=== PATIENT | female | born 1985 | race Caucasian/White ===

== ENCOUNTER 2020-07-16 10:37 | Outpatient (REF) | payer OTHER, SELFPAY ==
[2020-07-16 11:48] LABS: COVID-19 Test Negative (Negative); IDNOW Serial# 55D5AD1C
== END 2020-07-16 10:38 | disposition home or self-care (01) ==
LOC: HO.LAB 10:37
PROVIDERS: Visit Provider Internal Medicine
DX: Z20.828 Contact with and (suspected) exposure to other viral communicable diseases (principal)
CPT/HCPCS: 87635; C9803

== ENCOUNTER 2020-07-25 11:54 | Outpatient (REF) | payer OTHER, SELFPAY ==
[2020-07-25 12:40] LABS: COVID-19 Test Negative (Negative); IDNOW Serial# 55D5AD1C
== END 2020-07-25 11:55 | disposition home or self-care (01) ==
LOC: HO.EMPCOV 11:54
PROVIDERS: Visit Provider Internal Medicine
DX: Z20.828 Contact with and (suspected) exposure to other viral communicable diseases (principal)
CPT/HCPCS: 87635; C9803

== ENCOUNTER 2020-09-04 09:57 | Outpatient (REF) | payer SELFPAY ==
[2020-09-04 10:50] LABS: Cholesterol 152 mg/dL
== END 2020-09-04 09:58 | disposition home or self-care (01) ==
LOC: HO.LNP 09:57
PROVIDERS: Visit Provider Pathology Anatomic Pathology & Clinical Pathology
DX: Z13.89 Encounter for screening for other disorder (principal)
CPT/HCPCS: 82465

== ENCOUNTER 2020-11-19 15:44 | Outpatient (REF) | payer OTHER, SELFPAY ==
[2020-11-19 16:02] LABS: COVID-19 Test Negative (Negative); IDNOW Serial# 55D5AD1C
== END 2020-11-19 15:45 | disposition home or self-care (01) ==
LOC: HO.EMPCOV 15:44
PROVIDERS: Visit Provider Internal Medicine
DX: Z20.822 Contact with and (suspected) exposure to COVID-19 (principal)
CPT/HCPCS: 36415; 87635; C9803

== ENCOUNTER 2020-12-26 12:30 | Outpatient (REF) | payer OTHER, SELFPAY ==
[2020-12-26 13:36] LABS: COVID-19 Test Negative (Negative)
== END 2020-12-26 12:31 | disposition home or self-care (01) ==
LOC: HO.LAB 12:30
PROVIDERS: Visit Provider Internal Medicine
DX: Z20.822 Contact with and (suspected) exposure to COVID-19 (principal)
CPT/HCPCS: 36415; 87635; C9803

== ENCOUNTER → 2021-08-13 09:14 | Outpatient (BNVA) | payer OTHER, SELFPAY | PROVIDERS: PCP Nurse Practitioner; Referring Provider Nurse Practitioner; Visit Provider Nurse Practitioner | DX: K21.9 Gastro-esophageal reflux disease without esophagitis (principal) | CPT/HCPCS: 99202 ==

== ENCOUNTER → 2021-09-19 11:26 | Outpatient (BNVA) | payer OTHER, SELFPAY | PROVIDERS: PCP Nurse Practitioner; Referring Provider Nurse Practitioner; Visit Provider Nurse Practitioner ==

== ENCOUNTER 2021-10-31 10:33 | Outpatient (REF) | payer OTHER, SELFPAY ==
--- NOTE | ~2021-10-31 | FL_ITS ---
EXAMINATION: FL BARIUM SWALLOW CLINICAL INFORMATION: Gastroesophageal reflux disease without esophagitis. COMPARISON: None TECHNIQUE: Barium swallow examination is performed using fluoroscopic evaluation in addition to multiple fluoroscopic spot views. The patient is imaged both upright and prone and using both thick and thin sulfate along with effervescent granules. Fluoroscopy time: 2.5 minutes Dose: 96.582 mGy DAP: 7.966 Gycm2 Images: 52 FINDINGS: The esophagus is normal in course, caliber, and distensibility. Primary and secondary peristalsis are normal. The mucosa is smooth and featureless. The gastroesophageal junction is normally located. There is no obstruction of flow of contrast, nor is there obstruction to the passage of a 13 mm barium tablet. There is spontaneous gastroesophageal reflux to the midesophagus without provocative maneuvers with slightly delayed clearing. FL/FL barium swallow IMPRESSION: Spontaneous gastroesophageal reflux to the midesophagus.
== END 2021-10-31 10:34 | disposition home or self-care (01) ==
LOC: HO.XRAY 10:33
PROVIDERS: PCP Family Medicine; Visit Provider Nurse Practitioner
DX: K21.9 Gastro-esophageal reflux disease without esophagitis (principal)
CPT/HCPCS: 74220

== ENCOUNTER → 2021-12-02 14:36 | Outpatient (BNVA) | payer OTHER, SELFPAY | PROVIDERS: PCP Family Medicine; Visit Provider Nurse Practitioner | DX: Z13.89 Encounter for screening for other disorder (principal) ==

== ENCOUNTER 2022-10-09 11:51 | Outpatient (REF) | payer OTHER, SELFPAY ==
[2022-10-11 04:10] LABS: Lutenizing Hormone 7.4 mIU/mL
[2022-10-14 20:33] LABS: Anti-Mullerian Hormone-Female 1.97 ng/mL (0.18-5.68)
[2022-10-16 18:14] LABS: Progesterone 0.2 ng/mL
[2022-10-23 22:43] LABS: Estrogen 78.3 pg/mL
== END 2022-10-09 11:52 | disposition home or self-care (01) ==
LOC: HO.LAB 11:51
PROVIDERS: PCP Nurse Practitioner; Visit Provider Nurse Practitioner
DX: Z31.9 Encounter for procreative management, unspecified (principal)
CPT/HCPCS: 36415; 82397; 82672; 83001; 83002; 84144; 84443

== ENCOUNTER → 2022-11-14 11:53 | Outpatient (BNVA) | payer OTHER, SELFPAY | PROVIDERS: PCP Nurse Practitioner; Visit Provider Nurse Practitioner | DX: Z13.89 Encounter for screening for other disorder (principal) ==

== ENCOUNTER 2023-02-13 11:18 | Outpatient (REF) | payer OTHER, SELFPAY ==
[2023-02-13 12:16] LABS: Basophils Percent Auto 0.4 % (0-2); Eosinophils Absolute Auto 0.1 X10*3/uL (0.0-0.4); Eosinophils Percent Auto 2.7 % (0-4); Hematocrit 40.1 % (37.0-47.0); Hemoglobin 13.3 g/dl (12.0-16.0); Imm Gran Abs Auto 0.01 X10*3/uL (0.00-0.03); Imm Gran Pct Auto 0.2 % (0.0-0.4); Lymphocytes Absolute Auto 1.7 X10*3/uL (1.2-4.9); Lymphocytes Percent Auto 38.1 % (20-40); MANUAL DIFF FLAG NO; Mean Corpuscular HGB Conc 33.2 g/dl (31.0-35.0); Mean Corpuscular Hemoglobin 28.1 pg (27.0-33.0); Mean Corpuscular Volume 84.6 fL (80.0-98.0); Mean Platelet Volume 11.3 fL (9.4-12.3); Monocytes Absolute Auto 0.6 X10*3/uL (0.1-1.2); Monocytes Percent Auto 13.1 % (2-11); Neutrophils Absolute Auto 2.1 x10*3/uL (2.0-8.3); Neutrophils Percent Auto 45.5 % (45-73); Platelet Count 235 X10*3/uL (160-400); Red Blood Count 4.74 X10*6/uL (4.20-5.50); Red Cell Distribution Width 12.3 % (11.0-16.0); White Blood Count 4.5 X10*3/uL (4.8-10.8)
[2023-02-13 13:56] LABS: Thyroid Stimulating Hormone 1.34 uIU/mL (0.32-4.0); Vitamin D 25-OH Total 29.8 ng/mL (>30)
[2023-02-13 14:12] LABS: CT PCR NOT DETECTED (Not Detect.); NG PCR NOT DETECTED (Not Detect.)
[2023-02-13 14:18] LABS: Syphilis Screen Nonreactive (Nonreactive)
[2023-02-13 17:37] LABS: Estimated Average Glucose 85 mg/dL; Hemoglobin A1c % 4.6 %
[2023-02-15 04:34] LABS: Lutenizing Hormone 6.6 mIU/mL; Prolactin 13.9 ng/mL
[2023-02-16 10:01] LABS: HBsAGNum1 0.41 S/CO (0.00-0.99); HIV AB/AG Nonreactive (Nonreactive); HIV Num 1 0.07 S/CO (0.00-0.99); Hepatitis B Surface Antigen Negative (Negative); ~HepC Num1 0.17 S/CO (0.00-0.79); ~Hepatitis C Antibody Nonreactive (Nonreactive)
[2023-02-17 13:20] LABS: Rubella IgG Antibody 1.62 Index
[2023-02-17 13:23] LABS: Cytomegalovirus Ab IgG >10.00 U/mL; Cytomegalovirus Ab IgM <30.00 AU/mL
[2023-02-28 22:49] LABS: Estradiol Free 0.55 pg/mL; Estradiol, Ultrasensitive 31 pg/mL
== END 2023-02-13 11:19 | disposition home or self-care (01) ==
LOC: HO.LAB 11:18
PROVIDERS: Obstetrics & Gynecology Reproductive Endocrinology; PCP Nurse Practitioner; Visit Provider Pediatrics
DX: Z31.41 Encounter for fertility testing (principal); Z20.2 Contact with and (suspected) exposure to infections with a predominantly sexual mode of transmission
CPT/HCPCS: 0353U; 82306; 82670; 82681; 83001; 83002; 83036; 84146; 84443; 85025; 86644; 86645; 86762; 86780; 86803; 86850; 86900; 86901; 87340; 87389

== ENCOUNTER 2023-10-06 14:38 | Emergency (ER) | payer OTHER, SELFPAY ==
--- NOTE | ~2023-10-06 | CT_ITS ---
EXAMINATION: CTA head and neck CLINICAL INFORMATION: Left eye vision changes. COMPARISON: None available. TECHNIQUE: Test bolus sequences followed by intravenous administration of 70 mL of Omnipaque 350 contrast. Helical imaging was performed in the axial plane from the skull vertex to the thoracic inlet. Delayed postcontrast imaging of the head was also performed. The data was processed at the staff cytotechnologist workstation for generation of MIP sequences. Angled MIPs and volume rendered reformatted images were also generated at an offline 3D workstation. Stenoses are assessed in accordance with NASCET criteria unless otherwise indicated. This CT examination was performed using dose optimization techniques as appropriate, variously including the following: *Automated exposure control *Adjustment of mA and/or kV according to patient size (this includes techniques or standardized protocols for targeted exams where dose is matched to indication/reason for exam; i.e. extremities or head) *Use of iterative reconstruction technique DLP: 2201 mGy-cm FINDINGS: BRAIN: No acute intracranial hemorrhage or infarct. The pereyra-white matter differentiation is preserved. No midline shift or hydrocephalus. No acute extra-axial fluid collections. The osseous structures are unremarkable. No orbital pathology. The paranasal sinuses and mastoid air cells are clear. CTA NECK: Common origin of the innominate and left common carotid artery, normal variant. The innominate and bilateral subclavian arteries are patent. The origins and cervical segments of the common carotid arteries as well as the common carotid artery bifurcations are patent bilaterally. The cervical segments of the internal carotid arteries are patent bilaterally. The origins and cervical segments of the vertebral arteries are patent bilaterally. No hemodynamically significant stenosis, dissection, or aneurysm. The visualized branches of the external carotid arteries are unremarkable. CTA HEAD: Anterior circulation: The petrous, cavernous, supraclinoid segments of the internal carotid arteries are patent bilaterally. The major branches of the anterior and middle cerebral arteries as well as the anterior communicating artery complex are patent. No large vessel occlusion, saccular aneurysm, or dissection. Posterior circulation: The intracranial vertebral arteries are patent. The basilar artery is normal in caliber and course. The posterior cerebral and superior cerebellar arteries arise normally from the basilar summit. No aneurysm. On delayed imaging, the venous structures demonstrate normal contrast opacification. No filling defect. No abnormal intraparenchymal enhancement. Soft tissues: No suspicious neck mass or cervical adenopathy. Lungs: Clear. Bones: No acute osseous abnormality. No lytic or blastic osseous lesions. CT/CT angio head neck IMPRESSION: CT head demonstrates no acute intracranial hemorrhage or edematous territorial infarction. CTA head demonstrates no large vessel occlusion, saccular aneurysm, or dissection. CTA neck demonstrates no hemodynamically significant stenosis, dissection, or aneurysm.
[2023-10-06 14:46] VITALS: BP 116/65; PULSE 82; RESP 18; TEMP 36.6; O2SAT 100; BMI 38.0
--- NOTE | 2023-10-06 14:46 | ED.GENADULT ---
HPI - General Adult General Chief complaint: General Medical Stated complaint: temporarily loss of vision in L eye Time Seen by Provider: 10/06/23 16:16 Source: patient and RN notes reviewed Mode of arrival: ambulatory Limitations: no limitations History of Present Illness HPI narrative: This is a 38-year-old female, with a history of asthma and GERD, presenting to the emergency department for evaluation of vision changes which occurred prior to arrival. Patient states that while she was in a online meeting her left eye vision became blurry. She states that she saw shapes and colors but was unable to define objects. She states that this lasted for approximately 15 seconds and resolved on its own. She reports some mild achiness to her eye however denies eye pain, current vision changes or vision loss. She denies wearing contacts, she wears glasses. Denies history of similar symptoms. Denies any current headache, dizziness, weakness, chest pain, shortness of breath, abdominal pain, nausea, vomiting or diarrhea. Denies any head trauma or head strike. She has not on blood thinners. She has not currently . She states that she called her doctor who told her to come to the emergency room to have a CT scan. Reports that she has been in her usual state of health over the last several days MD complaint: Left eye vision changes Onset (ago): day(s) Location: eyes Radiation: non-radiation Relieving factors: none Exacerbating factors: none Associated symptoms: denies other symptoms Treatments prior to arrival: none Related Data Home Medications Medication Instructions Recorded Confirmed albuterol sulfate 90 mcg/actuation 2 puff PO Q4H PRN 08/13/21 aerosol inhaler cetirizine 10 mg tablet (Zyrtec) 10 mg PO DAILY PRN 08/13/21 prenat.vits,med,unb-udof-uqwam 1 tab PO DAILY 11/14/22 Previous Rx's Medication Instructions Recorded byekga-iosjhyid-kammqac 1 cap PO QID 30 days #120 caps 04/10/22 24,000-76,000-120,000 unit capsule,delayed rel (Creon) simethicone 180 mg capsule 180 mg PO QID 30 days #120 caps 04/10/22 Allergies Allergy/AdvReac Type Severity Reaction Status Date / Time No Known Allergies Allergy Verified 10/06/23 14:48 Review of Systems Review of Systems: Yes all other systems are reviewed and are negative Constitutional: Constitutional: Reports as per HPI ENT: Reports Normal hearing present Neurologic: Reports Normal hearing present [facility] Past Medical History Attestation statement: The following information was validated with the patient. Surgical History Hx of partial cystectomy H/O wisdom tooth extraction History of cholecystectomy Family History Family History Paternal Grandfather Pancreatic cancer Maternal Grandfather Heart attack Maternal Uncle HTN (hypertension) Social History Social History Alcohol intake: never Patient Tobacco Use Status: Never used Tobacco Advance Directives: No Advance Directives Information Provided: No Physical Exam ED Vital Signs: Vital Signs - 24 hr 10/06/23 14:46 Temperature 97.8 F Pulse Rate 82 Respiratory Rate 18 Blood Pressure 116/65 Pulse Oximetry 100 Oxygen Delivery Method Room Air BMI result Body Mass Index 38.0 Const General: cooperative, comfortable and no acute distress Orientation/consciousness: patient oriented x3 Limitations: no limitations HENMT Head: Yes normal to inspection, Yes normocephalic and Yes atraumatic Ears: hearing grossly normal bilaterally and TM's normal bilaterally General nose exam: Normal external nose present Face and sinus: Yes normal facial exam Mouth: Normal oral and palatal mucosa present, oropharynx normal and moist mucous membranes Throat: Yes posterior oropharynx normal Eyes Other: Left eye conjunctiva is not injected. Fluorescein stain was performed, no uptake elicited. No foreign body noted. Pupils equal and reactive. No nystagmus. Intra-ocular pressure 10mmHg bilaterally. General: appearance normal, both eyes and all related structures Periorbital: periorbital findings normal Eyelids: Yes eyelids normal Conjunctivae: conjunctivae normal Sclerae: sclerae normal Corneas: corneas normal Pupils: Equal, round and reactive pupils present EOM: EOMs intact bilaterally Direct Ophthalmoscopy: normal light reflex, No no photophobia, No no papilledema, fundi normal bilaterally and anterior chamber normal Neck Neck: Yes normal visual inspection, Yes full ROM and Yes no lymphadenopathy Lymphatic: no lymphadenopathy noted Chest Chest palpation & inspection: normal inspection of the chest Resp Effort & Inspection: normal respiratory effort and able to speak in complete sentences Auscultation: clear to auscultation bilaterally, no crackles, no rales, no rhonchi and no wheezes Cardio Rate: regular rate Rhythm: regular rhythm Heart sounds: S1 normal heart sound present and S2 normal heart sound present GI Inspection: Yes normal to inspection Skin General skin exam: no rashes or lesions noted Trauma: no lacerations or abrasions Wounds: no wounds Neuro General: patient oriented x3 and moves all extremities Cranial nerves: Yes CN's II-XII intact bilaterally, Yes Facial sensation intact/muscles of mastication intact, Yes Equal, round and reactive pupils present, Yes Normal accommodation reflex present, Yes Bilaterally intact EOM present, Yes Nystagmus not present, Yes Normal facial strength present, Yes Midline tongue present, Yes Symmetric palate elevation present, Yes Normal hearing present, Yes Ability to bilaterally rotate head present and Yes Ability to bilaterally elevate shoulders present Cognition (Neuro): normal cognition Gait exam (Neuro): Normal gait present Motor exam (neuro): 5/5 motor strength present throughout Coordination: szxdpc-ok-vnct test normal, qcve-xu-jwif test normal and tandem gait normal Romberg Test: Negative Extrem General: Yes normal to inspection Right upper extremity: normal to inspection Left upper extremity: normal to inspection Right lower extremity: normal to inspection Left lower extremity: normal to inspection Course Course Course Narrative: Patient complains of left eye loss of vision and blurriness that lasted less than a minute and was followed by floaters, she had no associated pain, no confusion no headache no nausea no dizziness no eye pain She does have an occasional history of migraine Reevaluation(s) Reevaluation #1: Visual acuity intact, labs reassuring. CTA is still pending. She has been asymptomatic since being in the emergency department. Will continue to closely monitor. Sign-out given to my colleague, Bladimir Underwood NP pending CTA. Time: 19:08 Reevaluation #2: brief Transient vision changes, asymptomatic while in the emergency department, unremarkable physical examination. CTA without acute etiology. Stable for discharge outpatient follow-up PCP worrisome signs and symptoms that would warrant re-evaluation emergency department. CT/CT angio head neck IMPRESSION: CT head demonstrates no acute intracranial hemorrhage or edematous territorial infarction. CTA head demonstrates no large vessel occlusion, saccular aneurysm, or dissection. CTA neck demonstrates no hemodynamically significant stenosis, dissection, or aneurysm. Time: 20:33 Medications Administered Discontinued Medications Generic Name Dose Route Start Last Admin Trade Name Scott PRN Reason Stop Dose Admin Fluorescein Sodium 1 strip 10/06/23 16:32 10/06/23 16:40 Fluorescein Sodium Strip EYE-LEFT 10/06/23 16:33 1 strip ONCE ONE Administration Iohexol 100 ml 10/06/23 18:55 10/06/23 18:55 Iohexol 350 Mg/Ml 100 Ml Infus..Btl IV 10/06/23 18:56 70 ml ONCE ONE Administration Tetracaine HCl 1 drop 10/06/23 16:32 10/06/23 16:40 Tetracaine Hcl 0.5% Oph Arlet 5 Ml Drops EYE-LEFT 10/06/23 16:33 1 drop ONCE ONE Administration Medical Decision Making Medical Decision Making [facility] Narrative: This is a 38-year-old female, with a history of asthma and GERD, presenting to the emergency department with episode of blurred vision that lasted approximately 15 seconds and resolved on its own. On arrival, vital signs within she is neurologically intact. Fluorescein stain was performed, no abnormality seen. Funduscopic exam was also performed, no abnormal findings. She has no headache, is neurologically intact. Will obtain CTA to rule out intracranial mass, hemorrhage, or abnormality. Patient has not had any blurred vision or visual changes since her arrival in the emergency department. Discussed case with my attending physician, Dr. Kaur, who is in agreement of obtaining CTA, basic labs. She is otherwise feeling well. Will continue to closely monitor. Differential Diagnosis Differential Diagnoses: The differential diagnosis associated with the presentation includes Closed angle glaucoma, iritis, macular degeneration, ICH, intracranial mass, CVA-unlikely Admission/Observation Consideration of admission/observation: Escalation of care including admission/observation considered Lab Data [facility] Lab Attestation statement: I reviewed the patient's lab results. No leukocytosis, stable H&H, chemistry nondiagnostic. Slight elevation in AST, otherwise unremarkable. Patient is not 10/06/23 17:28 10/06/23 17:28 Labs: Lab Results 10/06/23 Range/Units 17:28 WBC 6.4 (4.8-10.8) X10*3/uL RBC 4.80 (4.20-5.50) X10*6/uL Hgb 13.4 (12.0-16.0) g/dl Hct 40.8 (37.0-47.0) % MCV 85.0 (80.0-98.0) fL MCH 27.9 (27.0-33.0) pg MCHC 32.8 (31.0-35.0) g/dl RDW 11.9 (11.0-16.0) % Plt Count 255 (160-400) X10*3/uL MPV 9.9 (9.4-12.3) fL Immature Gran % (Auto) 0.2 (0.0-0.4) % Neut % (Auto) 47.1 (45-73) % Lymph % (Auto) 38.9 (20-40) % [place] % (Auto) 11.8 H (2-11) % Eos % (Auto) 1.7 (0-4) % Baso % (Auto) 0.3 (0-2) % Lymph # (Auto) 2.5 (1.2-4.9) X10*3/uL [place] # (Auto) 0.8 (0.1-1.2) X10*3/uL Eos # (Auto) 0.1 (0.0-0.4) X10*3/uL Baso # (Auto) 0.0 (0.0-0.2) X10*3/uL Abs Immat Gran (auto) 0.01 (0.00-0.03) X10*3/uL Absolute Neuts (auto) 3.0 (2.0-8.3) x10*3/uL Absolute Nucleated RBC 0.000 (0.0-0.012) X10*3/uL Nucleated RBC % (auto) 0.0 (0.0-0.2) /100WBC Sodium 141 (135-145) mmol/L Potassium 4.3 (3.3-5.1) mmol/L Chloride 104 (96-108) mmol/L Carbon Dioxide 31 H (22-29) mmol/L Anion Gap 10 L (12-20) BUN 14 (9-16) mg/dL Creatinine 0.65 (0.5-1.4) mg/dL Estim Creat Clear Calc 148.6 Estimated GFR > 60 Random Glucose 88 (60-115) mg/dL Calcium 9.0 (8.4-10.2) mg/dL Total Bilirubin 0.2 (0.0-1.0) mg/dL Direct Bilirubin < 0.2 (0.0-0.5) mg/dL AST 47 H (5-31) U/L ALT 24 (0-31) U/L Alkaline Phosphatase 46 (39-117) U/L Total Protein 7.2 (6.5-8.0) g/dL Albumin 3.7 (3.5-5.0) g/dL Beta HCG, Quant < 2 mIU/mL Radiology Impression Discussion of test interpretation with radiology: I have reviewed the radiologist's reading. Discharge Plan Discharge Clinical Impression: Change in vision Patient Disposition: Home, Self-Care Instructions: Blurred Vision (ED) Additional Instructions: You were seen in the emergency department after an episode of blurred vision. Your labs were reassuring. Your CTA did not indicate a reason for you to have this episode of blurred vision which is reassuring. Please follow-up with your eye physician, call tomorrow to make an appointment. If any new or worsening symptoms occur including fevers, chills headaches please return for re-evaluation Prescriptions: No Action albuterol sulfate 90 mcg/actuation HFA aerosol inhaler 2 puff PO Q4H PRN cetirizine [Zyrtec] 10 mg tablet 10 mg PO DAILY PRN Creon 24,000-76,000 -120,000 unit capsule,delayed release(DR/EC) 1 cap PO QID 30 Days Qty: 120 6RF Rx Instructions: administer with meals and/or snacks simethicone 180 mg capsule 180 mg PO QID 30 Days Qty: 120 6RF Rx Instructions: after meals prenat.vits,med,prh-rwjm-rwrfa Tablet 1 tab PO DAILY Referrals: Camille Arroyo, [employer] [Primary Care Provider] -
[2023-10-06] MEDS: Tetracaine HCl 0.5% Oph Sol 5 ML DROPS 1 DROP EYE-LEFT (16:40)
[2023-10-06] MEDS: Fluorescein Sodium STRIP 1 STRIP EYE-LEFT (16:40)
--- NOTE | 2023-10-06 17:12 | PC.NURSE ---
PT IN EXAM ROOM IN NO OUTWARD DISTRESS, PT REPORTS AND IS ABLE TO READ ON PHONE WITHOUT VISIUAL LIMITIATION, PROVIDER HAS MADE HER AWARE OF ED CARE PLAN AND PT IS IN AGREEMENT
[2023-10-06 17:32] LABS: MANUAL DIFF FLAG NO
[2023-10-06 17:33] LABS: Basophils Percent Auto 0.3 % (0-2); Eosinophils Absolute Auto 0.1 X10*3/uL (0.0-0.4); Eosinophils Percent Auto 1.7 % (0-4); Hematocrit 40.8 % (37.0-47.0); Hemoglobin 13.4 g/dl (12.0-16.0); Imm Gran Abs Auto 0.01 X10*3/uL (0.00-0.03); Imm Gran Pct Auto 0.2 % (0.0-0.4); Lymphocytes Absolute Auto 2.5 X10*3/uL (1.2-4.9); Lymphocytes Percent Auto 38.9 % (20-40); Mean Corpuscular HGB Conc 32.8 g/dl (31.0-35.0); Mean Corpuscular Hemoglobin 27.9 pg (27.0-33.0); Mean Platelet Volume 9.9 fL (9.4-12.3); Monocytes Absolute Auto 0.8 X10*3/uL (0.1-1.2); Monocytes Percent Auto 11.8 % (2-11); Neutrophils Percent Auto 47.1 % (45-73); Platelet Count 255 X10*3/uL (160-400); Red Cell Distribution Width 11.9 % (11.0-16.0); White Blood Count 6.4 X10*3/uL (4.8-10.8)
[2023-10-06 18:02] LABS: Alanine Aminotransferase 24 U/L (0-31); Albumin Level 3.7 g/dL (3.5-5.0); Alkaline Phosphatase 46 U/L (39-117); Anion Gap 10 (12-20); Aspartate Amino Transferase 47 U/L (5-31); Bilirubin Direct < 0.2 mg/dL (0.0-0.5); Bilirubin Total 0.2 mg/dL (0.0-1.0); Blood Urea Nitrogen 14 mg/dL (9-16); Carbon Dioxide 31 mmol/L (22-29); Chloride 104 mmol/L (96-108); Creatinine Clr Calc Pharmacy 148.6; Estimated Glomerular Filt Rate > 60; Glucose Random 88 mg/dL (60-115); Potassium 4.3 mmol/L (3.3-5.1); Sodium 141 mmol/L (135-145); Total Protein 7.2 g/dL (6.5-8.0)
[2023-10-06 18:06] LABS: HCG Quantitative < 2 mIU/mL
[2023-10-06] MEDS: iohexoL 350 MG/ML 100 ML INFUS..BTL IV (18:55)
== END 2023-10-06 20:39 | disposition home or self-care (01) ==
PROVIDERS: Physician Assistant Medical; Emergency Provider Emergency Medicine; PCP Nurse Practitioner
DX: H53.8 Other visual disturbances (principal); Z79.899 Other long term (current) drug therapy
CPT/HCPCS: 36415; 70496; 70498; 80048; 80076; 84702; 85025; 99283; 99284; Q9967

== ENCOUNTER 2024-01-26 12:39 | Outpatient (REF) | payer OTHER, SELFPAY ==
[2024-01-26 13:04] LABS: MANUAL DIFF FLAG NO
[2024-01-26 13:52] LABS: Basophils Percent Auto 0.4 % (0-2); Eosinophils Absolute Auto 0.1 X10*3/uL (0.0-0.4); Eosinophils Percent Auto 2.2 % (0-4); Hematocrit 40.1 % (37.0-47.0); Hemoglobin 13.5 g/dl (12.0-16.0); Imm Gran Abs Auto 0.01 X10*3/uL (0.00-0.03); Imm Gran Pct Auto 0.2 % (0.0-0.4); Lymphocytes Absolute Auto 2.1 X10*3/uL (1.2-4.9); Lymphocytes Percent Auto 41.7 % (20-40); Mean Corpuscular HGB Conc 33.7 g/dl (31.0-35.0); Mean Corpuscular Hemoglobin 28.4 pg (27.0-33.0); Mean Corpuscular Volume 84.4 fL (80.0-98.0); Mean Platelet Volume 11.1 fL (9.4-12.3); Monocytes Absolute Auto 0.6 X10*3/uL (0.1-1.2); Monocytes Percent Auto 11.7 % (2-11); Neutrophils Absolute Auto 2.2 x10*3/uL (2.0-8.3); Neutrophils Percent Auto 43.8 % (45-73); Platelet Count 263 X10*3/uL (160-400); Red Blood Count 4.75 X10*6/uL (4.20-5.50); Red Cell Distribution Width 12.3 % (11.0-16.0)
[2024-01-26 14:43] LABS: Thyroid Stimulating Hormone 1.84 uIU/mL (0.32-4.0)
[2024-01-26 16:01] LABS: CT PCR NOT DETECTED (Not Detect.); NG PCR NOT DETECTED (Not Detect.)
[2024-01-27 03:21] LABS: Syphilis Screen Nonreactive (Nonreactive)
[2024-01-27 03:34] LABS: HBsAGNum1 0.28 S/CO (0.00-0.99); HIV AB/AG Nonreactive (Nonreactive); HIV Num 1 0.05 S/CO (0.00-0.99); Hepatitis B Surface Antigen Negative (Negative); ~HepC Num1 0.16 S/CO (0.00-0.79); ~Hepatitis C Antibody Nonreactive (Nonreactive)
[2024-01-27 18:13] LABS: Follicle Stimulating Hormone 8.1 mIU/mL; Lutenizing Hormone 8.2 mIU/mL; Prolactin 10.2 ng/mL
[2024-01-27 23:19] LABS: Cytomegalovirus Ab IgG >10.00 U/mL; Cytomegalovirus Ab IgM <30.00 AU/mL
[2024-02-01 01:59] LABS: Estradiol Ultra Sensitive 37 pg/mL
== END 2024-01-26 12:40 | disposition home or self-care (01) ==
LOC: HO.LAB 12:39
PROVIDERS: PCP Nurse Practitioner; Visit Provider Obstetrics & Gynecology Reproductive Endocrinology
DX: Z31.41 Encounter for fertility testing (principal); Z11.59 Encounter for screening for other viral diseases; Z11.4 Encounter for screening for human immunodeficiency virus [HIV]
CPT/HCPCS: 0353U; 82670; 83001; 83002; 84146; 84443; 85025; 86644; 86645; 86780; 86803; 87340; 87389

== ENCOUNTER 2024-04-07 08:10 | Outpatient (REF) | payer OTHER, SELFPAY ==
--- NOTE | ~2024-04-07 | US_ITS ---
EXAMINATION: US ABDOMEN COMPLETE CLINICAL INFORMATION: Elevated liver transaminase levels. COMPARISON: None available. TECHNIQUE: Real-time imaging of the abdominal viscera. FINDINGS: PANCREAS: Normal. ABDOMINAL AORTA: The proximal, mid, and distal segments are normal in caliber. INFERIOR VENA CAVA: Visualized portions are normal. LIVER: Normal. The liver is normal in size. The liver contour is normal. Parenchymal echogenicity is normal. No focal hepatic lesion. There is no intrahepatic biliary duct dilatation seen. GALLBLADDER: Surgically absent. COMMON BILE DUCT: Normal in caliber measuring 0.5 cm in diameter. RIGHT KIDNEY: Normal. No hydronephrosis. No renal calculi or focal parenchymal lesions. The kidney measures 11.3 cm in maximum dimension. LEFT KIDNEY: Normal. No hydronephrosis. No renal calculi or focal parenchymal lesions. The kidney measures 11.6 cm in maximum dimension. SPLEEN: Normal. The spleen measures 11.1 cm in maximum dimension. FREE FLUID: None. US/US abdomen complete IMPRESSION: Unremarkable abdominal ultrasound. Electronically signed by: Janie Lamas MD 04/28/2024 01:43 PM EDT
[2024-04-15 00:18] LABS: Anti-Mullerian Hormone-Female 3.58 ng/mL (0.18-5.68)
== END 2024-04-07 08:11 | disposition home or self-care (01) ==
LOC: HO.US 08:10
PROVIDERS: Obstetrics & Gynecology Reproductive Endocrinology; Visit Provider Nurse Practitioner
DX: Z31.41 Encounter for fertility testing (principal); R74.01 Elevation of levels of liver transaminase levels
CPT/HCPCS: 36415; 76700; 82166; 86850

== ENCOUNTER 2024-08-12 12:27 | Outpatient (REF) | payer OTHER, SELFPAY ==
[2024-08-12 13:14] LABS: MANUAL DIFF FLAG NO
[2024-08-12 14:01] LABS: Basophils Percent Auto 0.4 % (0-2); Eosinophils Absolute Auto 0.1 X10*3/uL (0.0-0.4); Eosinophils Percent Auto 2.7 % (0-4); Hematocrit 41.4 % (37.0-47.0); Hemoglobin 13.5 g/dl (12.0-16.0); Imm Gran Abs Auto 0.01 X10*3/uL (0.00-0.03); Imm Gran Pct Auto 0.2 % (0.0-0.4); Lymphocytes Absolute Auto 2.1 X10*3/uL (1.2-4.9); Lymphocytes Percent Auto 40.9 % (20-40); Mean Corpuscular HGB Conc 32.6 g/dl (31.0-35.0); Mean Corpuscular Hemoglobin 28.1 pg (27.0-33.0); Mean Corpuscular Volume 86.1 fL (80.0-98.0); Mean Platelet Volume 10.2 fL (9.4-12.3); Monocytes Absolute Auto 0.6 X10*3/uL (0.1-1.2); Monocytes Percent Auto 11.5 % (2-11); Neutrophils Absolute Auto 2.3 x10*3/uL (2.0-8.3); Neutrophils Percent Auto 44.3 % (45-73); Platelet Count 303 X10*3/uL (160-400); Red Blood Count 4.81 X10*6/uL (4.20-5.50); Red Cell Distribution Width 12.3 % (11.0-16.0); White Blood Count 5.2 X10*3/uL (4.8-10.8)
[2024-08-12 15:28] LABS: CT PCR NOT DETECTED (Not Detect.); NG PCR NOT DETECTED (Not Detect.)
[2024-08-13 04:08] LABS: Syphilis Screen Nonreactive (Nonreactive)
[2024-08-13 04:44] LABS: ~HepC Num1 0.16 S/CO (0.00-0.79); ~Hepatitis C Antibody Nonreactive (Nonreactive)
[2024-08-14 09:29] LABS: Follicle Stimulating Hormone 6.1 mIU/mL; Lutenizing Hormone 6.4 mIU/mL
[2024-08-16 19:29] LABS: HIV RNA PCR Qn Copies Not Detected Copies/mL; HIV RNA PCR Qn Log Copies Not Detected Log cps/mL
[2024-08-19 00:18] LABS: Estradiol Ultra Sensitive 29 pg/mL
== END 2024-08-12 12:28 | disposition home or self-care (01) ==
LOC: HO.LAB 12:27
PROVIDERS: PCP Nurse Practitioner; Visit Provider Obstetrics & Gynecology Reproductive Endocrinology
DX: Z31.41 Encounter for fertility testing (principal); Z11.4 Encounter for screening for human immunodeficiency virus [HIV]
CPT/HCPCS: 82670; 83001; 83002; 85025; 86780; 86803; 87491; 87536; 87591; 87900

== ENCOUNTER 2024-08-23 15:10 | Outpatient (REF) | payer OTHER, SELFPAY ==
[2024-08-24 04:07] LABS: HBsAGNum1 0.31 S/CO (0.00-0.99); Hepatitis B Surface Antigen Negative (Negative)
== END 2024-08-23 15:11 | disposition home or self-care (01) ==
LOC: HO.LAB 15:10
PROVIDERS: PCP Nurse Practitioner; Visit Provider Obstetrics & Gynecology Reproductive Endocrinology
DX: Z11.59 Encounter for screening for other viral diseases (principal)
CPT/HCPCS: 36415; 87340

== ENCOUNTER 2025-02-22 13:02 | Outpatient (AMB) | payer OTHER, SELFPAY ==
[2025-02-22 13:08] VITALS: BP 114/78; PULSE 98; O2SAT 97; BMI 40.3
--- NOTE | 2025-02-22 13:08 | A.OFFVIS_ITS ---
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 Patient wakes up frequently throughout the night. Patient is 15wk with twins. Last sleep study 2018. Patient states hard time getting sleep since being a teenager. Snores when on back. No hard time falling asleep when awakening at night. Accompanied by: Self / Same As Patient Allergies No Known Allergies Allergy (Verified 02/22/25 13:16) HPI Comments Details: 39 year old female with twins has sleep apnea is referred to us by her pcp. She is taking a vitamin, B6, iron, choline, and 81mg aspirin due to high risk. Pt is a 15 week female and she says sleep has always been a challenge for her. 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 She goes to bed by midnight at the earliest and or by 1-2am usually then falls asleep quickly. If she gets in bed by 10pm she will have difficulty falling asleep. She wakes up multiple times to go to the bathroom. She takes naps after work, 2-3x a week. She is uncomfortable, tosses and turns a lot. She snores loudly and sleeps in the suppine position so now trying to get better at sleeping on her r. side. She has been told by a friend she gasps for air, she is a light sleeper, will wake up if the cat comes in the room. She had a sleep study in 2018 with inconclusive data. RLS Symtpom involuntary leg movements, however she is uncertain if this is related. Denies Migraines Diet is pretty good especially now that she is in her 2nd trimester. Memory is stable. 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 [facility] Surgical History Status post cervical polyp removal Hx of partial cystectomy H/O wisdom tooth extraction History of cholecystectomy Family History Paternal Grandfather Pancreatic cancer Maternal Grandfather Heart attack Maternal Uncle HTN (hypertension) Social History Alcohol intake: never Patient Tobacco Use Status: Never used Tobacco Physical Exam Vital Signs: Last Vital Signs Pulse 98 02/22/25 13:08 BP 114/78 02/22/25 13:08 Pulse Ox 97 02/22/25 13:08 Oxygen Delivery Method Room Air 02/22/25 13:08 BMI result Body Mass Index 40.3 pleasant Const General: cooperative, healthy appearing and no acute distress Nutritional Appearance: overweight Orientation/consciousness: patient oriented x3 HEENT Face and sinus: Yes face symmetric Eyes Pupils: Equal, round and reactive pupils present Neck Neck: Yes full ROM Resp Effort & Inspection: normal respiratory effort and able to speak in complete sentences Neuro General: patient oriented x3 and moves all extremities Cranial nerves: Yes Facial sensation intact/muscles of mastication intact, Yes Equal, round and reactive pupils present, Yes Normal accommodation reflex present, Yes Normal facial strength present, Yes Midline tongue present, Yes Ability to bilaterally rotate head present and Yes Ability to bilaterally elevate shoulders present Cognition (Neuro): normal cognition Gait exam (Neuro): Normal gait present Motor exam (neuro): 5/5 motor strength present throughout Coordination: zazpyz-lj-xnbh test normal Psych Appearance: grossly normal Speech and movement: Normal speech and movement present Attitude: cooperative Insight: Good insight present (Psych) Assessment & Plan Assessment & Plan (1) Excessive daytime sleepiness: Code(s): G47.19 - Other hypersomnia Category: Medical (2) Loud snoring: Code(s): R06.83 - Snoring Category: Medical (3) Fatigue during : Code(s): O26.819 - related exhaustion and fatigue, unspecified trimester Category: Medical Qualifiers: Trimester: second trimester Qualified Code(s): O26.812 - related exhaustion and fatigue, second trimester Plan PSG r/o dar labs to r/o deficiencies Orders: Orders Vitamin B12 and Folate 02/22/25 O26.819 - related exhaustion and fatigue, unspecified trimester TSH reflex Free T4 02/22/25 O26.819 - related exhaustion and fatigue, unspecified trimester Vitamin D 25-OH Total 02/22/25 O26.819 - related exhaustion and fatigue, unspecified trimester RT PSG in-lab sleep study 02/22/25 O26.819 - related exhaustion and fatigue, unspecified trimester, R06.83 - Snoring Comprehensive Met. Panel 02/22/25 O26.819 - related exhaustion and fatigue, unspecified trimester CRP High Sensitivity 02/22/25 O26.819 - related exhaustion and fatigue, unspecified trimester Ferritin 02/22/25 O26.819 - related exhaustion and fatigue, unspecified trimester Homocysteine 02/22/25 G47.9 - Sleep disorder, unspecified, O26.819 - related exhaustion and fatigue, unspecified trimester, R53.83 - Other fatigue Methylmalonic Acid 02/22/25 G47.9 - Sleep disorder, unspecified, O26.819 - related exhaustion and fatigue, unspecified trimester, R53.83 - Other fatigue Patient Instructions: Sleep Hygiene provided: set a scheduled bedtime and wake time to help regulate the circadian rhythm and balance the release of pituitary hormones. Sleep in a dark room, temperatures below 68 degrees, and no devices n bed. Limit caffeinated products 6 hours prior to bed, and limit fluids 2-4 hours prior to bed. Gentle night yoga, diffusing essential oils, and playing soft music can be relaxing. Coding Level of Care Code New Pt Level 4 (40569) Diagnoses Excessive daytime sleepiness G47.19 Loud snoring R06.83 Fatigue during in second trimester O26.812 Trimester: second trimester Time Spent (min) 30 Comment Evaluation of female 15 week DAR Sleep Questionnaire Difficulty falling asleep: No (if she is in bed at 10pm to midnight. ) Difficulty staying asleep?: Yes Number of arousals: 2-3 Snoring: Yes Witnessed apneas: Yes Gasping arousals: Yes Nocturia: No GERD: Yes (simethecone -helps gas burps alot) Vivid dreams: Yes (new) Acting out dreams: No Abnormal behavior in sleep: No Abnormal movements in sleep: No Morning headaches: Yes (hydrates ) Excessive daytime sleepiness: Yes Daytime naps: Yes Restless legs: No Hallucinations: No Sleep paralysis: No Drop attacks: No Sleep Study: Yes (subclinical DAR - psg >8 ) CPAP: No
--- OUTSIDE RECORDS SUMMARY | 2025-02-22 13:36 | XMS_ITS | Clinical Summary ---
Author Organization [facility] Address [address] [place] [address] Care Team Providers Care Yarn Rewinder Name Role Phone Pcp, No MD Primary Care Provider Unavailabl e Allergies No known active allergies Medications cetirizine HCl (ZYRTEC ORAL) Take by mouth. Active SIMETHICONE ORAL Take by mouth. Active vit no.124/iron/foli c ( VITAMIN ORAL) Take by mouth. Active coenzyme Q10 (Co Q-10) 10 mg capsule Take 10 mg by mouth in the morning. Active cholecalciferol, vitamin D3, (VITAMIN D3 ORAL) Take by mouth. Active ALBUTEROL SULFATE INHL Inhale. Active levonorgestreL-e thinyl estrad (AVIANE) 0.1-20 mg-mcg per tablet Take 1 tablet by mouth in the morning. Active Active Problems No known active problems Social History Tobacco Use Types Packs/Day Years Used Date Smoking Tobacco: Never Smokeless Tobacco: Never Tobacco Cessation:Counseling Given: Not Answered Alcohol Use Standard Drinks/Week Comments Not Currently 0 (1 standard drink = 0.6 oz pur e alcohol) Comments No Sex and Gender Information Value Date Recorded Sex Assigned at Not on file Legal Sex Female 2:00 PM EDT Gender Identity Not on file Sexual Orientation Not on file Last Filed Vital Signs Vital Sign Reading Time Taken Comments Blood Pressure 108/62 03/27/2023 3:35 PM EDT Pulse 65 03/27/2023 3:35 PM EDT Temperature 36.5 C (97.7 F) 03/27/2023 3:35 PM EDT Respiratory Rate 16 03/27/2023 3:35 PM EDT Oxygen Saturation 100% 03/27/2023 3:35 PM EDT Inhaled Oxygen Concentration - - Weight 105 kg (231 lb 7.7 oz) 03/27/2023 12:22 P M EDT Height 170.2 cm (5' 7 ) 03/27/2023 12:22 PM EDT Body Mass Index 36.26 03/27/2023 12:22 PM EDT Plan of Treatment Not on file Insurance ANTH - OUT OF STATE Advance Directives For more information, please contact: [phone] Documents on File Type Date Recorded Patient Drawing Box Tender Expl anation Advance Directives 03/31/2023 1:19 PM Care Teams Yarn Rewinder Relationship Specialty Start Date End Date Pcp, MD Keysha [address] [place] [address] PCP - General Internal Medicine 03/25/23
== END 2025-02-22 14:50 | disposition home or self-care (01) ==
LOC: HO.HSMS 13:02
PROVIDERS: PCP Nurse Practitioner; Visit Provider Physician Assistant Medical
DX: G47.19 Other hypersomnia (principal); R06.83 Snoring; O26.812 Pregnancy related exhaustion and fatigue, second trimester
CPT/HCPCS: 99204

== ENCOUNTER 2025-02-23 08:49 | Outpatient (REF) | payer OTHER, SELFPAY ==
--- OUTSIDE RECORDS SUMMARY | 2025-02-23 08:57 | XMS_ITS | Clinical Summary ---
Author Organization [facility] Address [address] [place] [address] Care Team Providers Care Facility Sales And Admin Name Role Phone Pcp, No MD Primary [...] Advance Directives For more information, please contact: [phone] Documents on File Type Date Recorded Patient Credit Collection Specialist Expl anation Advance Directives 03/31/2023 1:19 PM Care Teams Facility Sales And Admin Relationship Specialty Start Date End Date Pcp, MD [address] [place] [address] PCP - General Internal Medicine 03/25/23
[2025-02-23 10:14] LABS: Alanine Aminotransferase 45 U/L (0-31); Albumin Level 3.2 g/dL (3.5-5.0); Alkaline Phosphatase 40 U/L (39-117); Anion Gap 10 (12-20); Aspartate Amino Transferase 56 U/L (5-31); Blood Urea Nitrogen 6 mg/dL (9-16); Calcium 8.4 mg/dL (8.4-10.2); Carbon Dioxide 21 mmol/L (22-29); Chloride 106 mmol/L (96-108); Estimated Glomerular Filt Rate > 60; Potassium 3.4 mmol/L (3.3-5.1); Sodium 134 mmol/L (135-145); Total Protein 6.2 g/dL (6.5-8.0)
[2025-02-23 10:31] LABS: Ferritin 58 ng/mL (10-250)
[2025-02-23 10:53] LABS: Folate 13.9 ng/mL (> or = 4.0); Vitamin B12 285 pg/mL (200-900)
== END 2025-02-23 08:50 | disposition home or self-care (01) ==
LOC: HO.LAB 08:49
PROVIDERS: PCP Nurse Practitioner; Visit Provider Physician Assistant Medical
DX: O26.819 Pregnancy related exhaustion and fatigue, unspecified trimester (principal); G47.9 Sleep disorder, unspecified; Z13.6 Encounter for screening for cardiovascular disorders
CPT/HCPCS: 36415; 80053; 82306; 82607; 82728; 82746; 83090; 83921; 84443; 86141

== ENCOUNTER → 2025-03-16 20:30 | Outpatient (REF) | payer OTHER, SELFPAY | LOC: HO.SL 20:30 | PROVIDERS: PCP Nurse Practitioner; Visit Provider Physician Assistant Medical | DX: O26.812 Pregnancy related exhaustion and fatigue, second trimester (principal); O26.892 Other specified pregnancy related conditions, second trimester; R06.83 Snoring; O30.002 Twin pregnancy, unspecified number of placenta and unspecified number of amniotic sacs, second trimester; O09.522 Supervision of elderly multigravida, second trimester; Z3A.15 15 weeks gestation of pregnancy; Z68.41 Body mass index [BMI] 40.0-44.9, adult | CPT/HCPCS: 95810 ==

== ENCOUNTER → 2025-03-16 21:00 | Outpatient (BNV) | payer OTHER, SELFPAY | PROVIDERS: PCP Nurse Practitioner; Visit Provider Psychiatry & Neurology Neurology | DX: R06.83 Snoring (principal) | CPT/HCPCS: 95810 ==

== ENCOUNTER 2025-04-17 08:35 | Outpatient (AMB) | payer OTHER, SELFPAY ==
[2025-04-17 08:37] VITALS: BP 116/76; PULSE 111; O2SAT 97; BMI 40.8
--- NOTE | 2025-04-17 08:37 | A.OFFVIS_ITS ---
Vital Signs 04/17/25 08:37 Height 5 ft 7 in Weight 260 lb 6 oz BMI 40.8 BP 116/76 Blood Pressure Location Lt brachial Position Sitting Pulse 111 H Pulse Source Pulse Oximeter Pulse Oximetry (%) 97 Oxygen Delivery Method Room Air Intake Visit Reasons: Follow up Intake Note: Patient presents follow up Sleep. Labs/PSG in chart(AHI-1, VALERIA-87%). Accompanied by: Self / Same As Patient Allergies No Known Allergies Allergy (Verified 04/17/25 08:40) HPI Comments Details: 39 year old female she is with twins is here for a f/u of her sleep study. 03/16/2025 In-Lab/PSG c/w AHI-1, VALERIA-87%. Reviewed Sleep study with patient today. N1 30min, N2 58.5 min N3 52.5ming and REM 16.5 min /6.9%. Avg SPO2 was 94%. AHI 1/HR. No evidence of PERLA. Patient is currently 23 weeks gestation age and taking prenatals, B6, iron, choline, and 81mg aspirin due to high risk . PSG reviewed with pt. today and is negative for sleep apnea, she did have 3 arousals for the bathroom during the study, REM was only 6.9% of her total TIB and 16.5min. 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 She goes to bed by midnight at the earliest and or by 1-2am usually then falls asleep quickly. If she gets in bed by 10pm she will have difficulty falling asleep. She takes naps after work, 2-3x a week. She is uncomfortable, tosses and turns. She snores loudly, clenches her jaws, and sleeps in the supine position would like to be evaluated by Sleep Dentistry for an oral appliance to decrease clenching of jaw. She denies migraines. RLS Symptoms of involuntary leg movements, however she is uncertain if this is related. Diet is pretty poor due to morning sickness. Memory is stable. Mood is pleasant usually, she works with teenagers with behavioral dysfunction. [facility] Surgical History Status post cervical polyp removal Hx of partial cystectomy H/O wisdom tooth extraction History of cholecystectomy Family History Paternal Grandfather Pancreatic cancer Maternal Grandfather Heart attack Maternal Uncle HTN (hypertension) Social History Alcohol intake: never Patient Tobacco Use Status: Never used Tobacco Physical Exam Vital Signs: Last Vital Signs Pulse 111 H 04/17/25 08:37 BP 116/76 04/17/25 08:37 Pulse Ox 97 04/17/25 08:37 Oxygen Delivery Method Room Air 04/17/25 08:37 BMI result Body Mass Index 40.8 pleasant Const General: cooperative, healthy appearing and no acute distress Nutritional Appearance: overweight Orientation/consciousness: patient oriented x3 HEENT Face and sinus: Yes face symmetric Eyes Pupils: Equal, round and reactive pupils present Neck Neck: Yes full ROM Resp Effort & Inspection: normal respiratory effort and able to speak in complete sentences Neuro Other: 23 weeks gestation age. General: patient oriented x3 and moves all extremities Cranial nerves: Yes Facial sensation intact/muscles of mastication intact, Yes Equal, round and reactive pupils present, Yes Normal accommodation reflex present, Yes Normal facial strength present, Yes Midline tongue present, Yes Ability to bilaterally rotate head present and Yes Ability to bilaterally elevate shoulders present Cognition (Neuro): normal cognition Gait exam (Neuro): Normal gait present Motor exam (neuro): 5/5 motor strength present throughout and Normal motor muscle tone present throughout Coordination: [id number]-liyn test normal Psych Appearance: grossly normal Mental Status: mental status grossly normal Speech and movement: Normal speech and movement present Attitude: cooperative Thought process: Normal thought process present Thought content: Normal thought content present Results Reviewed Results Reviewed: PSG reviewed with patient and discussed no evidence of PERLA. Assessment & Plan Assessment & Plan (1) Loud snoring: Code(s): R06.83 - Snoring Category: Medical (2) Excessive daytime sleepiness: Code(s): G47.19 - Other hypersomnia Category: Medical (3) Fatigue during : Code(s): O26.819 - related exhaustion and fatigue, unspecified trimester Category: Medical Qualifiers: Trimester: second trimester Qualified Code(s): O26.812 - rela belgica exhaustion and fatigue, second trimester (4) Clenching of teeth: Code(s): R19.8 - Other specified symptoms and signs involving the digestive system and a bdomen Category: Medical Plan PSG reviewed with patient no evidence of PERLA Snoring referral to sleep dentistry for oral appliance evaluation labs to reviewed with patient. F/U 3 months post delievery for evaluation of Sleep disorders. -Shift sleeping disorder. Orders: Referrals Dentistry Referral R06.83 - Snoring, R19.8 - Other specified symptoms and signs involving the digestive system and abdomen Patient Instructions: Sleep Hygiene provided: set a scheduled bedtime and wake time to help regulate the circadian rhythm and balance the release of pituitary hormones. Sleep in a dark room, temperatures below 68 degrees, and no devices n bed. Limit caffeinated products 6 hours prior to bed, and limit fluids 2-4 hours prior to bed. Gentle night yoga, diffusing essential oils, and playing soft music can be relaxing. Coding Level of Care Code Est Pt Level 4 (30937) Diagnoses Loud snoring R06.83 Excessive daytime sleepiness G47.19 Fatigue during in second trimester O26.812 Trimester: second trimester Clenching of teeth R19.8
--- OUTSIDE RECORDS SUMMARY | 2025-04-17 09:01 | XMS_ITS | Clinical Summary ---
Author Organization [facility] Address [address] [place] [address] Phone Care Team Providers Care Counter Intelligence Name Role Phone Gabriel Kelly MD Primary Care Provider [phone] Social History Tobacco Use Types Packs/Day Years Used Date Smoking Tobacco: Never Assessed Education Answer Date Recorded Are you interested in more education? Not on anu e 12/19/2022 Are you concerned about learning? Not on file 12/19/2022 No 12/19/2022 No 12/19/2022 Digital Access Answer Date Recorded No 01/19/2023 No 01/19/2023 No 01/19/2023 Reliable internet access at home? Not on file 01/19/2023 Device with a working camera? Not on file Comments Unknown Sex and Gender Information Value Date Recorded Sex Assigned at Not on file Legal Sex Female 9:15 PM EDT Gender Identity Not on file Sexual Orientation Not on file Plan of Treatment Not on file Medical Devices Not on [place] [address] [employer] B[employer] Care Teams Counter Intelligence Relationship Specialty Start Date End Date Gabriel Kelly MD [address] [place] [address] [email or web address] PCP - General Family Medicine 09/09/17 Additional Source Comments The information contained in this document represents components of the legal health record. It is not the complete legal health record.[facility]
--- OUTSIDE RECORDS SUMMARY | 2025-04-17 09:01 | XMS_ITS ---
Author Name [facility] Organization Unknown Care Team Organization Name Specialty Phone Email Start Date End Da [facility] 03/27/2023 03/27/20
--- OUTSIDE RECORDS SUMMARY | 2025-04-17 09:01 | XMS_ITS | Clinical Summary ---
Author Organization [facility] Address [address] [place] [address] Care Team Providers Care Assortment Planner Name Role Phone Pcp, No MD Primary [...] Advance Directives For more information, please contact: [phone] Documents on File Type Date Recorded Patient Precision Dyer Expl anation Advance Directives 03/31/2023 1:19 PM Care Teams Assortment Planner Relationship Specialty Start Date End Date Pcp, MD Keysha [address] [place] [address] PCP - General Internal Medicine 03/25/23
== END 2025-04-17 09:02 | disposition home or self-care (01) ==
LOC: HO.HSMS 08:36
PROVIDERS: PCP Nurse Practitioner; Visit Provider Physician Assistant Medical
DX: R06.83 Snoring (principal); G47.19 Other hypersomnia; O26.812 Pregnancy related exhaustion and fatigue, second trimester; R19.8 Other specified symptoms and signs involving the digestive system and abdomen
CPT/HCPCS: 99214